=== PATIENT | male | born 1985 | race Caucasian/White ===

== ENCOUNTER → 2019-10-02 | Day surgery (SDC) | payer OTHER ==
[~2019-10-02] MED LIST: COLACE100 MG PO; NEURONTIN600 M1 PO; PERCOCET 5-3251 EACH PO
== END | disposition home or self-care (01) ==
LOC: ADM 09-27 10:00 → CIR.AMB 05:20
DX: K42.0 Umbilical hernia with obstruction, without gangrene (principal)

== ENCOUNTER 2019-10-21 13:51 | Emergency (ER) | payer OTHER ==
[~2019-10-21] VITALS: Ht 180.3 cm; Wt 88.9 kg
[2019-10-21] MEDS ORDERED: OFLOXACIN400 MG PO (20:02)
== END 2019-10-21 20:06 | disposition home or self-care (01) ==
LOC: ER 13:51
DX: L02.211 Cutaneous abscess of abdominal wall (principal); T81.49XA Infection following a procedure, other surgical site, initial encounter; Y84.8 Other medical procedures as the cause of abnormal reaction of the patient, or of later complication, without mention of misadventure at the time of the procedure; Y92.89 Other specified places as the place of occurrence of the external cause